=== PATIENT | female | born 1980 | race Caucasian/White ===

== ENCOUNTER 2016-03-22 10:43 | Emergency (ER) | payer OTHER ==
[~2016-03-22] VITALS: Ht 162.6 cm; Wt 113.4 kg
[~2016-03-22 10:43] MED LIST: AMOXICILLIN500 MG PO; BENADRYL50 MG PO; CLEOCIN150 MG PO; CRANBERRY450 MG PO; MOTRIN800 MG PO; PRENATAL1 TA1 PO; UNK ALLERGY MED
[2016-03-22 11:02] VITALS: BP 149/106
[2016-03-22] MEDS ORDERED: LOSARTAN POTASS25 MG PO (11:06)
--- NOTE | 2016-03-22 11:09 | NUR ---
PT AMBULATED TO BED 8 AT THIS TIME.
--- NOTE | 2016-03-22 11:15 | NUR ---
RIGHT FLANK PAIN X2 WEEKS; DENIES V/D; SKIN IS PINK/WARM/DRY; AAOX4 WITH EVEN AND STEADY GAIT; LUNGS CLEAR BL; HR EVEN AND REGULAR; PT DENIES ANY FEVER, CP, SOB, OR COUGH AT THIS TIME; PATIENT STATES PAIN OF 9/10 AT THIS TIME; VSS; PATIENT POSITIONED FOR COMFORT; HOB ELEVATED; BEDRAILS UP X2; BED DOWN. ER MD MADE AWARE OF PT STATUS.
[2016-03-22 12:30] VITALS: BP 144/98
== END 2016-03-22 12:30 | disposition home or self-care (01) ==
LOC: MED 10:43
DX: N39.0 Urinary tract infection, site not specified (principal); J45.909 Unspecified asthma, uncomplicated; C53.9 Malignant neoplasm of cervix uteri, unspecified; Z88.0 Allergy status to penicillin; Z88.5 Allergy status to narcotic agent

== ENCOUNTER 2016-05-04 14:43 | Emergency (ER) | payer OTHER ==
[~2016-05-04] VITALS: Ht 162.6 cm; Wt 117.9 kg
[~2016-05-04 14:43] MED LIST changes: +LOSARTAN POTASS25 MG PO
[2016-05-04 14:49] VITALS: BP 123/65
--- NOTE | 2016-05-04 15:03 | NUR ---
DR MORALEZ IN ROOM FOR EXAM.
--- NOTE | 2016-05-04 15:25 | NUR ---
URINE COLLECTED AND SENT
--- NOTE | 2016-05-04 15:48 | NUR ---
Patient discharged with v/s stable. Written and verbal after care instructions given and explained. Patient alert, oriented and verbalized understanding of instructions. Ambulatory with steady gait. All questions addressed prior to discharge. ID band removed. Patient advised to follow up with PMD. Rx of BACTRIM, PHENAZOPYRIDINR HCL given. Patient educated on indication of medication including possible reaction and side effects. Opportunity to ask questions provided and answered.
== END 2016-05-04 15:48 | disposition home or self-care (01) ==
LOC: MED 14:43
DX: N39.0 Urinary tract infection, site not specified (principal); J45.909 Unspecified asthma, uncomplicated; I10 Essential (primary) hypertension; F17.200 Nicotine dependence, unspecified, uncomplicated; Z85.41 Personal history of malignant neoplasm of cervix uteri; Z88.0 Allergy status to penicillin; Z88.5 Allergy status to narcotic agent

== ENCOUNTER 2016-08-28 13:22 | Emergency (ER) | payer OTHER ==
[~2016-08-28] VITALS: Ht 162.6 cm; Wt 117.2 kg
[~2016-08-28 13:22] MED LIST changes: -AMOXICILLIN500 MG PO; -BENADRYL50 MG PO; -CLEOCIN150 MG PO; -CRANBERRY450 MG PO; +LOSA25TA22 PO; -LOSARTAN POTASS25 MG PO; -MOTRIN800 MG PO; -PRENATAL1 TA1 PO; -UNK ALLERGY MED
[2016-08-28 13:41] VITALS: BP 118/53
[2016-08-28] MEDS ORDERED: NACL 0.9% 500 ML IV SCH (18:37)
--- NOTE | 2016-08-28 18:39 | NUR ---
Patient ambulated to bed 8. RN evaluating patient at bedside.
[2016-08-28] MEDS ORDERED: MORPHINE SULFATE 10 MG/ML SYR IVP ONE (18:40)
[2016-08-28] MEDS ORDERED: ONDANSETRON 4 MG/2 ML VIAL IVP ONE (18:40)
[2016-08-28 19:03] LABS: APPEARANCE,URINE TURBID (CLEAR); BILIRUBIN,URINE NEGATIVE (NEGATIVE); BLOOD, URINE 2+ (NEGATIVE); COLOR,URINE YELLOW (YELLOW); LEUKOCYTE ESTERASE ,URINE 2+ (NEGATIVE); NITRITE, URINE NEGATIVE (NEGATIVE); PH,URINE 6.5 (5.0-9.0); PROTEIN,URINE TRACE (NEGATIVE); UGLUCOSE NEGATIVE (NEGATIVE); UROBILINOGEN,URINE 0.2 EU/dL (0.2 - 1)
[2016-08-28 19:08] LABS: BACTERIA,URINE 1+ /HPF (None Seen); RBC,URINE 11-20 (MOD) /HPF (0-5); SQUAMOUS EPITHELIAL CELL,UR 4-10 (MOD) /LPF (0-3 (FEW)); URINE AMORPHOUS URATE 4+ /HPF (None Seen)
--- NOTE | 2016-08-28 19:26 | NUR ---
PATIENT PRESENTS TO ED WITH C/O BILATERAL FLANK PAIN RADIATING TO ABDOMEN X 3 DAYS;HESITANCY, URGENCY;HX OF KIDNEY PROBLEMS, FATTY LIVER, HTN, HPV;RX OF LOSARTAN .SKIN IS PINK/WARM/DRY; AAOX4 WITH EVEN AND STEADY GAIT; LUNGS CLEAR BL; HR EVEN AND REGULAR; PT DENIES ANY FEVER, CP, SOB, OR COUGH AT THIS TIME; PATIENT STATES PAIN OF 8/10 AT THIS TIME; PATIENT POSITIONED FOR COMFORT; HOB ELEVATED; BEDRAILS UP X2; BED DOWN.
[2016-08-28] MEDS ORDERED: LEVOFLOXACIN 500 MG/D5W PREMIX 100 ML IV ONE (19:30)
--- NOTE | 2016-08-28 19:30 | NUR ---
RECEIVED REPORT FROM DAY NURSE REINIER CALABRESE FOR TRANSFER OF CARE.
[2016-08-28] MEDS ORDERED: KETOROLAC 30 MG/ML VIAL IVP ONE (19:45)
[2016-08-28] MEDS ORDERED: PHENAZOPYRIDINE 100 MG TAB PO ONE (19:45)
[2016-08-28 19:47] LABS: BASOPHILS # (AUTO) 0.3 K/uL (0.00-0.22); BASOPHILS % (AUTO) 2.2 % (0.0-2.0); EOSINOPHILS # (AUTO) 0.2 K/uL (0-0.4); EOSINOPHILS % (AUTO) 1.2 % (0.0-4.0); HEMATOCRIT 40.2 % (36-48); HEMOGLOBIN 12.9 g/dL (12.0-16.0); LYMPHOCYTES # (AUTO) 2.3 K/uL (2.5-16.5); LYMPHOCYTES % (AUTO) 17.8 % (20.5-51.1); MEAN CORPUSCULAR HEMOGLOBIN 26 pg (27-31); MEAN CORPUSCULAR HGB CONC 32 g/dL (33-37); MEAN CORPUSCULAR VOLUME 81 fL (80-94); MONOCYTES # (AUTO) 0.6 K/uL (0.8-1.0); MONOCYTES % (AUTO) 4.4 % (1.7-9.3); NEUTROPHILS # (AUTO) 9.7 K/uL (1.8-7.7); NEUTROPHILS % (AUTO) 74.4 % (42.2-75.2); PLATELET COUNT (AUTO) 359 K/uL (140-450); RED BLOOD CELL COUNT(AUTO) 4.95 MIL/uL (4.20-5.40); RED CELL DISTRIBUTION WIDTH 14.3 % (11.6-13.7); WHITE BLOOD COUNT (AUTO) 13.1 K/uL (4.8-10.8)
[2016-08-28 19:51] LABS: ANION GAP 14.8 (8-16); CALCIUM 8.3 mg/dL (8.5-10.1); CARBON DIOXIDE 24.2 mmol/L (21-32); CREATININE 0.7 mg/dL (0.6-1.3)
--- NOTE | 2016-08-28 19:55 | NUR ---
PATIENT BEING EVALUATED BY DR. DIAZ.
[2016-08-28 19:56] LABS: ALBUMIN 3.5 g/dL (3.4-5.0); TOTAL BILIRUBIN 0.9 mg/dL (0.0-1.0); TOTAL PROTEIN, SERUM 7.9 g/dL (6.4-8.2)
--- NOTE | 2016-08-28 21:25 | NUR ---
PT RESTING IN BED. NO SOB NOTED AT THIS TIME. PT DENIES ANY DISCOMFORT AT THIS TIME. WILL CONTINUE TO MONITOR.
[2016-08-28 22:02] VITALS: BP 123/62
--- NOTE | 2016-08-28 22:03 | NUR ---
Patient discharged with v/s stable. Written and verbal after care instructions given and explained. Patient alert, oriented and verbalized understanding of instructions. Ambulatory with steady gait. All questions addressed prior to discharge. ID band removed. Patient advised to follow up with PMD. Rx of NORCO, CIPRO, PYRIDIUM given. Patient educated on indication of medication including possible reaction and side effects. Opportunity to ask questions provided and answered.
== END 2016-08-28 22:03 | disposition home or self-care (01) ==
LOC: MED 13:22
DX: N39.0 Urinary tract infection, site not specified (principal); J45.909 Unspecified asthma, uncomplicated; I10 Essential (primary) hypertension; Z88.0 Allergy status to penicillin; Z88.5 Allergy status to narcotic agent; Z85.41 Personal history of malignant neoplasm of cervix uteri
CPT/HCPCS: 36415; 74176; 80053; 81001; 81025; 85025; 87086; 96365; 96375; 99285; J1885; J1956; J2405; J7030; J2270

== ENCOUNTER 2017-01-22 13:01 | Emergency (ER) | payer OTHER ==
[~2017-01-22] VITALS: Ht 160 cm; Wt 115.7 kg
[2017-01-22 13:10] VITALS: BP 141/62
--- NOTE | 2017-01-22 13:25 | NUR ---
Patient ambulated to bed 06.
--- NOTE | 2017-01-22 13:53 | NUR ---
Patient being evaluated by Dr. Armendariz at bedside.
--- NOTE | 2017-01-22 13:53 | NUR ---
37/F presents to ED for evaluation RUQ for the past 2 months and remains constant the past 2 weeks. Pt states "It gets worse when I eat. They have me on a special diet." Hx fatty liver, HPV. No vomiting noted at this time. Abd soft, tender with palpation, active bowel sounds x 4 quadrants. Pt seen by PMD and no further testing has been done. VSS.
[2017-01-22] MEDS ORDERED: KETOROLAC 30 MG/ML VIAL IM ONE (14:05)
--- NOTE | 2017-01-22 14:05 | NUR ---
Ultrasound at bedside.
[2017-01-22] MEDS ORDERED: KETOROLAC 30 MG/ML VIAL IVP ONE (14:25)
[2017-01-22] MEDS ORDERED: NACL 0.9% 1,000 ML IV ONE (14:25)
[2017-01-22 14:28] LABS: BILIRUBIN,URINE NEGATIVE (NEGATIVE); BLOOD, URINE 2+ (NEGATIVE); LEUKOCYTE ESTERASE ,URINE 1+ (NEGATIVE); NITRITE, URINE NEGATIVE (NEGATIVE); UGLUCOSE NEGATIVE (NEGATIVE)
[2017-01-22 14:29] LABS: APPEARANCE,URINE HAZY (CLEAR); COLOR,URINE YELLOW (YELLOW)
[2017-01-22 14:35] LABS: BASOPHILS # (AUTO) 0.1 K/uL (0.00-0.22); BASOPHILS % (AUTO) 1.4 % (0.0-2.0); EOSINOPHILS # (AUTO) 0.1 K/uL (0-0.4); EOSINOPHILS % (AUTO) 0.6 % (0.0-4.0); HEMATOCRIT 41.5 % (36-48); HEMOGLOBIN 13.4 g/dL (12.0-16.0); LYMPHOCYTES # (AUTO) 1.9 K/uL (2.5-16.5); LYMPHOCYTES % (AUTO) 19.8 % (20.5-51.1); MEAN CORPUSCULAR HEMOGLOBIN 26 pg (27-31); MEAN CORPUSCULAR HGB CONC 32 g/dL (33-37); MEAN CORPUSCULAR VOLUME 81 fL (80-94); MONOCYTES # (AUTO) 0.3 K/uL (0.8-1.0); MONOCYTES % (AUTO) 3.3 % (1.7-9.3); NEUTROPHILS # (AUTO) 7.2 K/uL (1.8-7.7); NEUTROPHILS % (AUTO) 74.9 % (42.2-75.2); PLATELET COUNT (AUTO) 343 K/uL (140-450); RED BLOOD CELL COUNT(AUTO) 5.12 MIL/uL (4.20-5.40); RED CELL DISTRIBUTION WIDTH 14.8 % (11.6-13.7); WHITE BLOOD COUNT (AUTO) 9.6 K/uL (4.8-10.8)
[2017-01-22 14:46] LABS: RBC,URINE 3-10 (FEW) /HPF (0-5)
[2017-01-22 14:49] LABS: CARBON DIOXIDE 25.2 mmol/L (21-32); CREATININE 0.7 mg/dL (0.6-1.3); POTASSIUM 4.2 mmol/L (3.5-5.1)
--- NOTE | 2017-01-22 14:51 | NUR ---
Pt taken CT via w/c
[2017-01-22 14:55] LABS: ALBUMIN 3.4 g/dL (3.4-5.0); TOTAL BILIRUBIN 0.5 mg/dL (0.0-1.0)
--- NOTE | 2017-01-22 16:19 | NUR ---
IV removed, catheter intact and site benign. Applied folded 4x4 gauze and tape to stop bleeding.
[2017-01-22 16:20] VITALS: BP 120/74
--- NOTE | 2017-01-22 16:20 | NUR ---
Patient discharged with v/s stable. Written and verbal after care instructions given and explained. Patient alert, oriented and verbalized understanding of instructions. Ambulatory with steady gait. All questions addressed prior to discharge. ID band removed. Patient advised to follow up with PMD. Rx of Bentyl 20mg given. Patient educated on indication of medication including possible reaction and side effects. Opportunity to ask questions provided and answered.
== END 2017-01-22 16:20 | disposition home or self-care (01) ==
LOC: MED 13:01
DX: R10.11 Right upper quadrant pain (principal); R11.0 Nausea; R19.7 Diarrhea, unspecified; J45.909 Unspecified asthma, uncomplicated; I10 Essential (primary) hypertension; Z71.6 Tobacco abuse counseling; Z88.0 Allergy status to penicillin; Z88.5 Allergy status to narcotic agent; Z79.899 Other long term (current) drug therapy; Z85.41 Personal history of malignant neoplasm of cervix uteri
CPT/HCPCS: 36415; 74176; 76705; 80053; 81001; 81025; 85025; 87086; 96361; 96374; 99285; J1885; J7030; Q0092

== ENCOUNTER 2017-03-19 17:10 | Emergency (ER) | payer OTHER ==
[~2017-03-19] VITALS: Ht 160 cm; Wt 117.0 kg
[2017-03-19 17:25] VITALS: BP 141/80
--- NOTE | 2017-03-19 18:00 | NUR ---
Patient ambulated to bed 2. RN evaluating patient at bedside.
--- NOTE | 2017-03-19 18:15 | NUR ---
ASSUMED PATIENT CARE, CONCUR WITH TRIAGE. NURSING ASSESSMENT COMPLETED. SEEN AND EVALUATED BY PROVIDER, MSE COMPLETED.
[2017-03-19 18:39] LABS: APPEARANCE,URINE SL CLOUDY (CLEAR); BILIRUBIN,URINE NEGATIVE (NEGATIVE); BLOOD, URINE 2+ (NEGATIVE); COLOR,URINE YELLOW (YELLOW); LEUKOCYTE ESTERASE ,URINE NEGATIVE (NEGATIVE); NITRITE, URINE NEGATIVE (NEGATIVE); PH,URINE 6.5 (5.0-9.0); UGLUCOSE NEGATIVE (NEGATIVE)
[2017-03-19 18:51] LABS: BASOPHILS # (AUTO) 0.3 K/uL (0.00-0.22); BASOPHILS % (AUTO) 2.1 % (0.0-2.0); EOSINOPHILS # (AUTO) 0.2 K/uL (0-0.4); EOSINOPHILS % (AUTO) 1.2 % (0.0-4.0); HEMATOCRIT 42.2 % (36-48); HEMOGLOBIN 13.6 g/dL (12.0-16.0); LYMPHOCYTES # (AUTO) 2.1 K/uL (2.5-16.5); LYMPHOCYTES % (AUTO) 15.7 % (20.5-51.1); MEAN CORPUSCULAR HEMOGLOBIN 26 pg (27-31); MEAN CORPUSCULAR HGB CONC 32 g/dL (33-37); MEAN CORPUSCULAR VOLUME 81 fL (80-94); MONOCYTES # (AUTO) 0.5 K/uL (0.8-1.0); MONOCYTES % (AUTO) 3.5 % (1.7-9.3); NEUTROPHILS % (AUTO) 77.5 % (42.2-75.2); PLATELET COUNT (AUTO) 381 K/uL (140-450); RED BLOOD CELL COUNT(AUTO) 5.18 MIL/uL (4.20-5.40); RED CELL DISTRIBUTION WIDTH 14.6 % (11.6-13.7); WHITE BLOOD COUNT (AUTO) 13.1 K/uL (4.8-10.8)
[2017-03-19 18:59] LABS: RBC,URINE 11-20 (MOD) /HPF (0-5); WBC,URINE 0-5 (RARE) /HPF (0-5)
[2017-03-19 19:00] LABS: ALBUMIN 3.6 g/dL (3.4-5.0); ANION GAP 15.2 (8-16); CARBON DIOXIDE 23.8 mmol/L (21-32); CREATININE 0.7 mg/dL (0.6-1.3); TOTAL BILIRUBIN 0.5 mg/dL (0.0-1.0)
--- NOTE | 2017-03-19 19:12 | NUR ---
Report recieved from Rj HILLS. Pt stable in bed and resting.
--- NOTE | 2017-03-19 19:21 | NUR ---
PATIENT CARE REPORT GIVEN TO FISHER TROT LINE, CONTINUITY OF CARE ENDORSED.
[2017-03-19] MEDS ORDERED: KETOROLAC 30 MG/ML VIAL IM ONE (19:55)
--- NOTE | 2017-03-19 20:00 | NUR ---
PT IN BED RESTING IN POC. VSS. CONTINUE TO MONITOR.
[2017-03-19 20:46] VITALS: BP 135/85
--- NOTE | 2017-03-19 20:46 | NUR ---
Patient discharged with v/s stable with pain decreased to 4/10. Written and verbal after care instructions given and explained. Patient alert, oriented and verbalized understanding of instructions. Ambulatory with steady gait. All questions addressed prior to discharge. ID band removed. Patient advised to follow up with PMD. Rx of CIPRO AND MOTRIN given. Patient educated on indication of medication including possible reaction and side effects. Opportunity to ask questions provided and answered.
== END 2017-03-19 20:46 | disposition home or self-care (01) ==
LOC: MED 17:10
DX: R10.11 Right upper quadrant pain (principal); R30.0 Dysuria; I10 Essential (primary) hypertension; Z88.0 Allergy status to penicillin; Z88.5 Allergy status to narcotic agent
CPT/HCPCS: 36415; 74176; 76705; 80053; 81001; 81025; 83690; 85025; 96372; 99285; J1885; Q0092

== ENCOUNTER 2017-05-30 16:01 | Emergency (ER) | payer OTHER ==
[~2017-05-30] VITALS: Ht 162.6 cm; Wt 116.6 kg
[2017-05-30 16:26] VITALS: BP 151/103
--- NOTE | 2017-05-30 16:44 | NUR ---
EKG GIVEN TO DR GARCIA, PT AMBULATES BACK TO THE LOBBY
--- NOTE | 2017-05-30 20:10 | NUR ---
PT SITTING IN A CHAIR. PT STATED THAT CHEST PAIN, BURNING AND STABBING FEELING (6/10) STARTED ABOUT 3 WEEKS AGO AND LEFT ARM NUMBNESS. PT STATED PAIN COMES AND GOES. PT FURTHER STATED THAT SHE HAD DENTAL WORK ABOUT A WEEK AGO AND THEY WORKED ON TEETH ON THE LEFT SIDE AND SHE HAD LEFT JAR PAIN FROM THEN AND PAIN TO THE CHEST AND THE ARM WORSENED. PT TAKES LOSARTAN 25MG FOR HIGH BP, CLINDAMICYN AND IBUPROFEN S/P DENTAL WORK. PT IS VSS. RR EVEN AND UNLABORED. ER MD MADE AWARE.
--- NOTE | 2017-05-30 20:15 | NUR ---
PT.AMBULATED TO ER HANNA
--- NOTE | 2017-05-30 20:25 | NUR ---
DR. NEELY EVALUATING PT AT THIS TIME.
[2017-05-30] MEDS ORDERED: KETOROLAC 30 MG/ML VIAL IM ONE (20:30)
[2017-05-30 20:58] LABS: BASOPHILS # (AUTO) 0.1 K/uL (0.00-0.22); BASOPHILS % (AUTO) 1.2 % (0.0-2.0); EOSINOPHILS # (AUTO) 0.1 K/uL (0-0.4); EOSINOPHILS % (AUTO) 0.8 % (0.0-4.0); HEMOGLOBIN 12.8 g/dL (12.0-16.0); LYMPHOCYTES % (AUTO) 25.9 % (20.5-51.1); MEAN CORPUSCULAR HEMOGLOBIN 26 pg (27-31); MEAN CORPUSCULAR HGB CONC 32 g/dL (33-37); MEAN CORPUSCULAR VOLUME 81.3 fL (80-94); MONOCYTES # (AUTO) 0.5 K/uL (0.8-1.0); MONOCYTES % (AUTO) 4.6 % (1.7-9.3); NEUTROPHILS # (AUTO) 7.8 K/uL (1.8-7.7); NEUTROPHILS % (AUTO) 67.5 % (42.2-75.2); PLATELET COUNT (AUTO) 388 K/uL (140-450); RED BLOOD CELL COUNT(AUTO) 4.92 MIL/uL (4.20-5.40); RED CELL DISTRIBUTION WIDTH 16.3 % (11.6-13.7); WHITE BLOOD COUNT (AUTO) 11.5 K/uL (4.8-10.8)
[2017-05-30 21:08] LABS: APPEARANCE,URINE SL CLOUDY (CLEAR); BILIRUBIN,URINE NEGATIVE (NEGATIVE); BLOOD, URINE 3+ (NEGATIVE); COLOR,URINE YELLOW (YELLOW); LEUKOCYTE ESTERASE ,URINE NEGATIVE (NEGATIVE); NITRITE, URINE NEGATIVE (NEGATIVE); UGLUCOSE NEGATIVE (NEGATIVE)
[2017-05-30 21:09] LABS: ANION GAP 16.2 (8-16); CARBON DIOXIDE 25.7 mmol/L (21-32); CREATININE 0.7 mg/dL (0.6-1.3); POTASSIUM 3.9 mmol/L (3.5-5.1)
[2017-05-30 21:11] LABS: BARBITURATE, URINE NEG. ng/ml (NEG <=200); BENZODIAZEPINE, URINE NEG. ng/mL (NEG <=200); CANNABINOID, URINE NEG. ng/mL (NEG <=50); COCAINE, URINE NEG. ng/mL (NEG <=300); OPIATE, URINE NEG. ng/mL (NEG <=2000); PHENCYCLIDINE SCREEN,URINE NEG. ng/mL (NEG <=25)
[2017-05-30 21:16] LABS: ALBUMIN 3.5 g/dL (3.4-5.0); TOTAL BILIRUBIN 0.5 mg/dL (0.0-1.0)
[2017-05-30 21:22] LABS: RBC,URINE >100 /HPF (0-5)
[2017-05-30 21:55] VITALS: BP 138/88
== END 2017-05-30 21:55 | disposition home or self-care (01) ==
LOC: MED 16:01
DX: R07.89 Other chest pain (principal); R06.02 Shortness of breath; R68.84 Jaw pain; I10 Essential (primary) hypertension; Z79.899 Other long term (current) drug therapy; Z88.0 Allergy status to penicillin; Z88.5 Allergy status to narcotic agent
CPT/HCPCS: 36415; 71045; 80053; 80305; 81001; 84484; 85025; 87086; 93005; 96372; 99285; J1885

== ENCOUNTER 2018-01-04 22:08 | Emergency (ER) | payer OTHER ==
[~2018-01-04] VITALS: Ht 160 cm; Wt 117.2 kg
[~2018-01-04 22:08] MED LIST changes: +LOSA25TA15 PO; -LOSA25TA22 PO
[2018-01-04 22:15] VITALS: BP 149/66
[2018-01-04] MEDS ORDERED: BEN10 PO (22:18)
[2018-01-04] MEDS ORDERED: KETOROLAC 60 MG/2 ML VIAL IM ONE (22:50)
[2018-01-04] MEDS ORDERED: ONDANSETRON 4 MG ODT PO ONE (22:50)
[2018-01-04 23:17] VITALS: BP 133/76
== END 2018-01-04 23:17 | disposition home or self-care (01) ==
LOC: MED 22:08
DX: N39.0 Urinary tract infection, site not specified (principal); R11.0 Nausea; F17.200 Nicotine dependence, unspecified, uncomplicated; I10 Essential (primary) hypertension; Z88.0 Allergy status to penicillin; Z88.5 Allergy status to narcotic agent; Z79.899 Other long term (current) drug therapy
CPT/HCPCS: 81002; 81025; 87086; 96372; 99283; J1885; Q0162

== ENCOUNTER 2018-02-13 21:55 | Emergency (ER) | payer OTHER ==
[~2018-02-13] VITALS: Ht 162.6 cm; Wt 113.4 kg
[~2018-02-13 21:55] MED LIST changes: +BEN10 PO; -LOSA25TA15 PO; +LOSA25TA43 PO
[2018-02-13 22:01] VITALS: BP 126/87
--- NOTE | 2018-02-13 22:01 | NUR ---
TO BED # 5 AMBULATORY, REPORT GIVEN TO JOSE LUIS HILLS
--- NOTE | 2018-02-13 22:10 | NUR ---
Dr. Baltazar evaluating patient at bedside.
[2018-02-13] MEDS ORDERED: KETOROLAC 60 MG/2 ML VIAL IM ONE (22:15)
[2018-02-13] MEDS ORDERED: ONDANSETRON 4 MG ODT PO ONE (22:15)
[2018-02-13 22:33] LABS: BASOPHILS # (AUTO) 0.1 K/uL (0.00-0.22); BASOPHILS % (AUTO) 0.7 % (0.0-2.0); EOSINOPHILS # (AUTO) 0.1 K/uL (0-0.4); EOSINOPHILS % (AUTO) 1.2 % (0.0-4.0); HEMATOCRIT 39.9 % (36-48); HEMOGLOBIN 12.7 g/dL (12.0-16.0); LYMPHOCYTES # (AUTO) 2.3 K/uL (2.5-16.5); LYMPHOCYTES % (AUTO) 21.1 % (20.5-51.1); MEAN CORPUSCULAR HEMOGLOBIN 26 pg (27-31); MEAN CORPUSCULAR HGB CONC 32 g/dL (33-37); MEAN CORPUSCULAR VOLUME 81.5 fL (80-94); MONOCYTES # (AUTO) 0.6 K/uL (0.8-1.0); MONOCYTES % (AUTO) 5.7 % (1.7-9.3); NEUTROPHILS # (AUTO) 7.7 K/uL (1.8-7.7); NEUTROPHILS % (AUTO) 71.3 % (42.2-75.2); PLATELET COUNT (AUTO) 362 K/uL (140-450); RED BLOOD CELL COUNT(AUTO) 4.89 MIL/uL (4.20-5.40); RED CELL DISTRIBUTION WIDTH 15.9 % (11.6-13.7); WHITE BLOOD COUNT (AUTO) 10.8 K/uL (4.8-10.8)
[2018-02-13 22:42] LABS: ANION GAP 12.7 (8-16); CREATININE 0.7 mg/dL (0.6-1.3); POTASSIUM 3.7 mmol/L (3.5-5.1)
[2018-02-13 22:50] LABS: ALBUMIN 3.3 g/dL (3.4-5.0); TOTAL BILIRUBIN 0.4 mg/dL (0.0-1.0)
--- NOTE | 2018-02-13 22:50 | NUR ---
PT BIB SELF C/O ABD PAIN W/ NAUSEA AND URINARY BURNING AND FREQUENCY. PT STATES SHE HAS BEEN SEEN BY PCP FOR SAME S/S AND GIVEN ABX BUT PT IS STILL HAVING PAIN. ABD IS ROUND, SOFT, ACTIVE BS X4, NON TENDER. PT LAYING IN BED FAMILY AT BEDSIDE.
[2018-02-13 22:53] LABS: APPEARANCE,URINE CLEAR (CLEAR); BILIRUBIN,URINE NEGATIVE (NEGATIVE); BLOOD, URINE 2+ (NEGATIVE); COLOR,URINE YELLOW (YELLOW); LEUKOCYTE ESTERASE ,URINE NEGATIVE (NEGATIVE); NITRITE, URINE NEGATIVE (NEGATIVE); PH,URINE 6.5 (5.0-9.0); RBC,URINE 0-5 (RARE) /HPF (0-5); UGLUCOSE NEGATIVE (NEGATIVE); WBC,URINE 0-5 (RARE) /HPF (0-5)
[2018-02-13 23:24] VITALS: BP 134/83
--- NOTE | 2018-02-13 23:25 | NUR ---
Patient discharged with v/s stable. Written and verbal after care instructions given and explained. Patient alert, oriented and verbalized understanding of instructions. Ambulatory with steady gait. All questions addressed prior to discharge. ID band removed. Patient advised to follow up with PMD. Rx of NITROFURANTOIN given. Patient educated on indication of medication including possible reaction and side effects. Opportunity to ask questions provided and answered.
== END 2018-02-13 23:25 | disposition home or self-care (01) ==
LOC: MED 21:55
DX: N39.0 Urinary tract infection, site not specified (principal); I10 Essential (primary) hypertension; Z88.0 Allergy status to penicillin; Z88.5 Allergy status to narcotic agent; Z79.899 Other long term (current) drug therapy
CPT/HCPCS: 36415; 80053; 81001; 81025; 83690; 84703; 85025; 96372; 99283; J1885; Q0162

== ENCOUNTER 2018-04-24 21:50 | Emergency (ER) | payer OTHER ==
[~2018-04-24] VITALS: Ht 162.6 cm; Wt 118.9 kg
[2018-04-24 21:55] VITALS: BP 152/64
--- NOTE | 2018-04-24 22:02 | NUR ---
EKG PERFORMED IN TRIAGE ROOM WITH TRIAGE NURSE PRESENT
--- NOTE | 2018-04-24 22:26 | NUR ---
PT TAKEN TO XRAY FROM [facility] BEARD[facility]
--- NOTE | 2018-04-24 23:22 | NUR ---
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 PT DENIES N/V/D; SKIN IS PINK/WARM/DRY; AAOX4 WITH EVEN AND STEADY GAIT; LUNGS CLEAR BL; HR EVEN AND REGULAR; PATIENT POSITIONED FOR COMFORT; HOB ELEVATED; BEDRAILS UP X2; BED DOWN. ER MD MADE AWARE OF PT STATUS.
--- NOTE | 2018-04-24 23:22 | NUR ---
PT TAKEN TO BED 12
--- NOTE | 2018-04-25 00:52 | NUR ---
Dr. Dominguez evaluating patient at bedside.
[2018-04-25] MEDS ORDERED: KETOROLAC 60 MG/2 ML VIAL IM ONE (00:55)
[2018-04-25 01:29] VITALS: BP 144/71
== END 2018-04-25 01:29 | disposition home or self-care (01) ==
LOC: MED 21:50
DX: R07.89 Other chest pain (principal); R11.0 Nausea; R05 Cough; I10 Essential (primary) hypertension; F17.200 Nicotine dependence, unspecified, uncomplicated; Z79.899 Other long term (current) drug therapy; Z88.0 Allergy status to penicillin; Z88.5 Allergy status to narcotic agent
CPT/HCPCS: 71046; 93005; 96372; 99283; J1885

== ENCOUNTER 2018-10-08 17:30 | Emergency (ER) | payer OTHER ==
[~2018-10-08] VITALS: Ht 160 cm; Wt 122.5 kg
[2018-10-08 17:50] VITALS: BP 123/72
[2018-10-08 19:50] VITALS: BP 123/72
[2018-10-08 19:52] LABS: BASOPHILS # (AUTO) 0.1 K/uL (0.00-0.22); BASOPHILS % (AUTO) 0.8 % (0.0-2.0); EOSINOPHILS # (AUTO) 0.1 K/uL (0-0.4); EOSINOPHILS % (AUTO) 0.7 % (0.0-4.0); HEMATOCRIT 41.4 % (36-48); HEMOGLOBIN 13.5 g/dL (12.0-16.0); LYMPHOCYTES # (AUTO) 2.1 K/uL (2.5-16.5); LYMPHOCYTES % (AUTO) 18.5 % (20.5-51.1); MEAN CORPUSCULAR HEMOGLOBIN 26 pg (27-31); MEAN CORPUSCULAR HGB CONC 33 g/dL (33-37); MEAN CORPUSCULAR VOLUME 80.6 fL (80-94); MONOCYTES # (AUTO) 0.5 K/uL (0.8-1.0); MONOCYTES % (AUTO) 4.8 % (1.7-9.3); NEUTROPHILS # (AUTO) 8.4 K/uL (1.8-7.7); NEUTROPHILS % (AUTO) 75.2 % (42.2-75.2); PLATELET COUNT (AUTO) 327 K/uL (140-450); RED BLOOD CELL COUNT(AUTO) 5.13 MIL/uL (4.20-5.40); RED CELL DISTRIBUTION WIDTH 15.7 % (11.6-13.7); WHITE BLOOD COUNT (AUTO) 11.2 K/uL (4.8-10.8)
[2018-10-08 20:04] LABS: ANION GAP 15.4 (8-16); CARBON DIOXIDE 22.4 mmol/L (21-32); CREATININE 0.6 mg/dL (0.6-1.3); POTASSIUM 3.8 mmol/L (3.5-5.1)
[2018-10-08 20:10] LABS: ALBUMIN 3.5 g/dL (3.4-5.0); TOTAL BILIRUBIN 0.7 mg/dL (0.0-1.0)
[2018-10-08 20:10] LABS: BILIRUBIN,URINE NEGATIVE (NEGATIVE); BLOOD, URINE 3+ (NEGATIVE); COLOR,URINE YELLOW (YELLOW); LEUKOCYTE ESTERASE ,URINE TRACE (NEGATIVE); NITRITE, URINE NEGATIVE (NEGATIVE); UGLUCOSE NEGATIVE (NEGATIVE)
[2018-10-08 20:24] LABS: APPEARANCE,URINE HAZY (CLEAR)
[2018-10-08] MEDS ORDERED: KETOROLAC 60 MG/2 ML VIAL IM ONE (20:35)
== END 2018-10-08 21:07 | disposition home or self-care (01) ==
LOC: MED 17:30
DX: N39.0 Urinary tract infection, site not specified (principal); I10 Essential (primary) hypertension; F17.210 Nicotine dependence, cigarettes, uncomplicated; Z88.5 Allergy status to narcotic agent; Z79.899 Other long term (current) drug therapy; Z88.0 Allergy status to penicillin
CPT/HCPCS: 36415; 80053; 81001; 81025; 83690; 85025; 87086; 96372; 99283; J1885

== ENCOUNTER 2019-01-23 16:12 | Emergency (ER) | payer OTHER ==
[~2019-01-23] VITALS: Ht 160 cm; Wt 98.0 kg
[2019-01-23 16:54] VITALS: BP 130/79
--- NOTE | 2019-01-23 16:59 | NUR ---
PT AMBULATED TO RESTROOM TO PROVIDE URINE SAMPLE.
--- NOTE | 2019-01-23 17:02 | NUR ---
39 Y/O FEMALE C/O PAINFUL URINATION, URINARY HESITENCY/FEQUENCY, FLANK PAIN, NAUSEA AND CHILLS X2 WEEKS. PT STATES SHE TRIED TAKING AN ANTIBIOTIC SHE HAD FROM PREVIOUS UTI AND THERE WAS NO RELIEF. ABD SOFT AND NON TENDER. PT CALM AND PLEASANT, PT SITTING IN CHB. MEDHX: CHRONIC UTI ALLERGIES: PENICILLIN, CODEINE
[2019-01-23 18:34] LABS: APPEARANCE,URINE CLEAR (CLEAR); BILIRUBIN,URINE NEGATIVE (NEGATIVE); BLOOD, URINE 1+ (NEGATIVE); COLOR,URINE YELLOW (YELLOW); LEUKOCYTE ESTERASE ,URINE NEGATIVE (NEGATIVE); NITRITE, URINE NEGATIVE (NEGATIVE); PH,URINE 5.5 (5.0-9.0); UGLUCOSE NEGATIVE (NEGATIVE)
[2019-01-23 18:49] LABS: RBC,URINE 0-5 /HPF (0-5); WBC,URINE 0-5 /HPF (0-5)
[2019-01-23] MEDS ORDERED: KETOROLAC 60 MG/2 ML VIAL IM ONE (19:25)
--- NOTE | 2019-01-23 19:33 | NUR ---
PT CONTINUES TO C/O LOWER BACK PAIN 09/30. ADMINISTERED TORADOL 60MG PER ERPA ORDER. WILL REASSESS LATER.
--- NOTE | 2019-01-23 20:00 | NUR ---
PT STATES SOME PAIN RELIEF, 07/31. WILL CONTINUE TO MONITOR.
[2019-01-23] MEDS ORDERED: cefTRIAXone 250 MG in LIDOCAINE MPF 1% 0.9 ML IM ONE (20:45)
[2019-01-23] MEDS ORDERED: AZITHROMYCIN 250 MG TAB PO ONE (20:45)
[2019-01-23 21:18] VITALS: BP 135/65
--- NOTE | 2019-01-23 21:18 | NUR ---
PT DISCHARGED WITH PAPERWORK. RX MOTRIN, NITROFURATOIN, PHENAZOPYRIDINE. EDUCATED PT REGARDING MEDICATIONS AND S/E. EDUCATED PT REGARDING D/C DIAGNOSIS AND INSTRUCTIONS. PT VERBALIZED UNDERSTANDING OF TEACHING. TOLD PT TO FOLLOW UP WITH PCP AND WHEN TO RETURN TO ED. PT AT STABLE CONDITION. ALL QUESTIONS ANSWERED.
[2019-01-26 15:13] LABS: CHLAMYDIA TRACHOMATIS AMP DNA Negative (Negative)
== END 2019-01-23 21:18 | disposition home or self-care (01) ==
LOC: MED 16:12
DX: N89.8 Other specified noninflammatory disorders of vagina (principal); R30.0 Dysuria; I10 Essential (primary) hypertension; Z11.3 Encounter for screening for infections with a predominantly sexual mode of transmission; Z88.0 Allergy status to penicillin; Z88.5 Allergy status to narcotic agent; Z79.899 Other long term (current) drug therapy
CPT/HCPCS: 36415; 81001; 81025; 87086; 87210; 87491; 96372; 99283; J0696; J1885; J2001

== ENCOUNTER 2019-04-24 16:00 | Emergency (ER) | payer OTHER ==
[~2019-04-24] VITALS: Ht 165.1 cm; Wt 118.4 kg
[2019-04-24 16:09] VITALS: BP 121/80
--- NOTE | 2019-04-24 16:17 | NUR ---
URINE CUP HANDED TO PT FOR SAMPLE
--- NOTE | 2019-04-24 16:30 | NUR ---
39 Y/O F C/C UPPER QUADRANT ABD PAIN / LOWER AND UPPER BACK PAIN / NAUSEA X 3 DAYS. PER PT DENIES TRAUMA. ABDOMINAL PAIN 08/30. BACK PAIN 09/30. PT UNABLE TO DESCRIBE PAIN. PT ALLERGIES PNC,CODEINE. HX IBS,DIVERTICULITIS,HTN,ACID REFLUX,EMPHYSEMA. RX LOSARTAN,PANTOPRAZOLE. DENIES V/D. SIDE RAIL X1. FAMILY AT BEDSIDE.
--- NOTE | 2019-04-24 16:59 | NUR ---
PT RESTING IN BED, SIDE RAIL X1
--- NOTE | 2019-04-24 16:59 | NUR ---
ERMD AT BEDSIDE
[2019-04-24] MEDS ORDERED: NACL 0.9% 1,000 ML IV SCH (17:05)
[2019-04-24] MEDS ORDERED: KETOROLAC 30 MG/ML VIAL IVP ONE (17:05)
[2019-04-24] MEDS ORDERED: ONDANSETRON 4 MG/2 ML VIAL IVP ONE (17:05)
--- NOTE | 2019-04-24 17:56 | NUR ---
LAB COLLECTED ; WALKED TO LAB
--- NOTE | 2019-04-24 17:56 | NUR ---
US AT BEDSIDE
[2019-04-24 18:22] LABS: BASOPHILS # (AUTO) 0.1 K/uL (0.00-0.22); BASOPHILS % (AUTO) 0.6 % (0.0-2.0); EOSINOPHILS % (AUTO) 0.5 % (0.0-4.0); HEMATOCRIT 38.4 % (36-48); HEMOGLOBIN 12.9 g/dL (12.0-16.0); LYMPHOCYTES # (AUTO) 1.7 K/uL (2.5-16.5); LYMPHOCYTES % (AUTO) 17.6 % (20.5-51.1); MEAN CORPUSCULAR HEMOGLOBIN 28 pg (27-31); MEAN CORPUSCULAR HGB CONC 34 g/dL (33-37); MEAN CORPUSCULAR VOLUME 81.9 fL (80-94); MONOCYTES # (AUTO) 0.5 K/uL (0.8-1.0); MONOCYTES % (AUTO) 4.7 % (1.7-9.3); NEUTROPHILS # (AUTO) 7.6 K/uL (1.8-7.7); NEUTROPHILS % (AUTO) 76.6 % (42.2-75.2); PLATELET COUNT (AUTO) 337 K/uL (140-450); RED BLOOD CELL COUNT(AUTO) 4.69 MIL/uL (4.20-5.40); RED CELL DISTRIBUTION WIDTH 14.5 % (11.6-13.7); WHITE BLOOD COUNT (AUTO) 9.9 K/uL (4.8-10.8)
[2019-04-24 18:37] LABS: ALBUMIN 3.6 g/dL (3.4-5.0); ANION GAP 11.1 (8-16); CARBON DIOXIDE 24.8 mmol/L (21-32); CREATININE 0.7 mg/dL (0.6-1.3); POTASSIUM 3.9 mmol/L (3.5-5.1); TOTAL BILIRUBIN 0.6 mg/dL (0.0-1.0)
--- NOTE | 2019-04-24 18:51 | NUR ---
PT RESTING IN BED, SIDE RAIL X1
--- NOTE | 2019-04-24 19:06 | NUR ---
Pt report received from REINIER Wren. Transfer of care at this time.
--- NOTE | 2019-04-24 19:06 | NUR ---
REPORT GIVEN TO TRACI HILLS / TORRI HILLS FOR CONTINUITY OF CARE
[2019-04-24 19:41] VITALS: BP 119/74
--- NOTE | 2019-04-24 19:41 | NUR ---
Patient discharged with v/s stable. Written and verbal after care instructions given and explained. Patient verbalized understanding. Ambulatory with steady gait. All questions addressed prior to discharge. Advised to follow up with PMD.
[2019-04-24 20:49] LABS: APPEARANCE,URINE CLEAR (CLEAR); BILIRUBIN,URINE NEGATIVE (NEGATIVE); BLOOD, URINE 1+ (NEGATIVE); COLOR,URINE YELLOW (YELLOW); LEUKOCYTE ESTERASE ,URINE NEGATIVE (NEGATIVE); NITRITE, URINE NEGATIVE (NEGATIVE); PH,URINE 5.5 (5.0-9.0); UGLUCOSE NEGATIVE (NEGATIVE)
[2019-04-24 21:14] LABS: WBC,URINE 0-5 /HPF (0-5)
== END 2019-04-24 19:41 | disposition home or self-care (01) ==
LOC: MED 16:00
DX: R10.11 Right upper quadrant pain (principal); G89.29 Other chronic pain; R11.0 Nausea; R63.0 Anorexia; K21.9 Gastro-esophageal reflux disease without esophagitis; I10 Essential (primary) hypertension; Z98.890 Other specified postprocedural states; J43.9 Emphysema, unspecified; F17.210 Nicotine dependence, cigarettes, uncomplicated; Z79.899 Other long term (current) drug therapy; Z88.0 Allergy status to penicillin; Z88.5 Allergy status to narcotic agent; Z71.6 Tobacco abuse counseling
CPT/HCPCS: 36415; 76700; 80053; 81001; 81025; 83690; 85025; 96374; 96375; 99284; J1885; J2405; J7030; Q0092

== ENCOUNTER 2019-09-21 17:30 | Emergency (ER) | payer OTHER ==
[~2019-09-21] VITALS: Ht 162.6 cm; Wt 117.9 kg
[2019-09-21 17:45] VITALS: BP 118/8
--- NOTE | 2019-09-21 17:50 | NUR ---
pt ambulated to bed 04.
[2019-09-21 17:57] VITALS: BP 118/78
--- NOTE | 2019-09-21 18:00 | NUR ---
dr chandler at bedside evaluatinbg pt.
--- NOTE | 2019-09-21 18:03 | NUR ---
c/o lower pelvic pain x 6-7 days with painful urination, denies vaginal bleeding; placed on levaquin last week with no improvement, PCP started patient on Bactrim 1 day ago . Pt aox4 , afibrile , ambulatory with steady gait , pink palpebral conjunctiva , anicteric sclera , flat soft abdomen. hx fibroids, diverticulosis, IBS
[2019-09-21 18:23] LABS: BASOPHILS % (AUTO) 0.3 % (0.0-2.0); EOSINOPHILS % (AUTO) 0.3 % (0.0-4.0); HEMATOCRIT 40.8 % (36-48); HEMOGLOBIN 12.9 g/dL (12.0-16.0); LYMPHOCYTES # (AUTO) 1.7 K/uL (2.5-16.5); LYMPHOCYTES % (AUTO) 11.8 % (20.5-51.1); MEAN CORPUSCULAR HEMOGLOBIN 26 pg (27-31); MEAN CORPUSCULAR HGB CONC 32 g/dL (33-37); MEAN CORPUSCULAR VOLUME 81.9 fL (80-94); MONOCYTES # (AUTO) 0.6 K/uL (0.8-1.0); MONOCYTES % (AUTO) 4.2 % (1.7-9.3); NEUTROPHILS # (AUTO) 12.2 K/uL (1.8-7.7); NEUTROPHILS % (AUTO) 83.4 % (42.2-75.2); PLATELET COUNT (AUTO) 330 K/uL (140-450); RED BLOOD CELL COUNT(AUTO) 4.99 MIL/uL (4.20-5.40); WHITE BLOOD COUNT (AUTO) 14.6 K/uL (4.8-10.8)
[2019-09-21 18:36] LABS: APPEARANCE,URINE CLEAR (CLEAR); BILIRUBIN,URINE NEGATIVE (NEGATIVE); BLOOD, URINE 2+ (NEGATIVE); COLOR,URINE YELLOW (YELLOW); LEUKOCYTE ESTERASE ,URINE NEGATIVE (NEGATIVE); NITRITE, URINE NEGATIVE (NEGATIVE); UGLUCOSE NEGATIVE (NEGATIVE)
[2019-09-21 18:50] LABS: ALBUMIN 3.5 g/dL (3.4-5.0); ANION GAP 18.2 (8-16); CARBON DIOXIDE 19.5 mmol/L (21-32); CREATININE 0.6 mg/dL (0.6-1.3); POTASSIUM 3.7 mmol/L (3.5-5.1); TOTAL BILIRUBIN 0.7 mg/dL (0.0-1.0)
--- NOTE | 2019-09-21 19:08 | NUR ---
transfer care to luca avila
[2019-09-21 19:09] LABS: WBC,URINE 0-5 /HPF (0-5)
--- NOTE | 2019-09-21 19:09 | NUR ---
RECIVED REPORT FROM SHANNON HILLS. CONTINUATION OF CARE.
[2019-09-21 19:10] LABS: RBC,URINE 11-20 (MOD) /HPF (0-5)
== END 2019-09-21 19:43 | disposition home or self-care (01) ==
LOC: MED 17:30
DX: N83.209 Unspecified ovarian cyst, unspecified side (principal); R31.9 Hematuria, unspecified
CPT/HCPCS: 36415; 80053; 81001; 81025; 85025; 99284

== ENCOUNTER 2019-12-21 22:30 | Emergency (ER) | payer OTHER ==
[~2019-12-21] VITALS: Ht 160 cm; Wt 121.6 kg
[2019-12-21 22:33] VITALS: BP 150/101
--- NOTE | 2019-12-21 22:38 | NUR ---
PT AMBULATED TO BED 11 WITH STEADY GAIT.
--- NOTE | 2019-12-21 22:50 | NUR ---
MD HAYNES AT BEDSIDE
--- NOTE | 2019-12-21 22:59 | NUR ---
PT COMING IN WITH C/O DIFFUSE ABD PAINBWITH BLOATING X 8 DAYS. PT HAS HAD BOUTS OF DIARRHEA AND CONSTIPATION OVER THE LAST WEEK. SHE HAS BEEN HAVING NAUSEA BUT NO VOMITING, HAS DECREASED APPETITE DUE TO NOT BEING ABLE TO EAT CERTIAN THINGS THAT CAUSE SYMPTOMS TO BE WORSE. PT AFEBRILE. PT IS BEING SEEN BY MD FOR POSSIBLE DX OF IBS, NOT CURRENTLY TAKING ANY MEDS FOR THESE SYMPTOMS. MD OS RULING OUT OTHER OPTIONS WELL. ABD TENDER UPON PALPATION. BED IN LOWEST POSITION AND SIDE RAIL UP X 1. PT PLACED IN GOWN. HX - FATTY LIVER, HTN ALLERGIES - PCN, CODEINE
[2019-12-21] MEDS ORDERED: ONDANSETRON 4 MG/2 ML VIAL IVP ONE (23:00)
[2019-12-21] MEDS ORDERED: NACL 0.9% 1,000 ML IV ONE (23:00)
[2019-12-21] MEDS ORDERED: KETOROLAC 30 MG/ML VIAL IVP ONE ×2 (23:00→23:55)
[2019-12-21] MEDS ORDERED: MORPHINE SULFATE 4 MG/ML SYR IVP ONE (23:00)
--- NOTE | 2019-12-21 23:12 | NUR ---
LABS COLLECTED WHEN STARTING IV AND GIVEN TO LAB TACH
[2019-12-21 23:20] LABS: BASOPHILS # (AUTO) 0.1 K/uL (0.00-0.22); BASOPHILS % (AUTO) 0.7 % (0.0-2.0); EOSINOPHILS # (AUTO) 0.1 K/uL (0-0.4); HEMATOCRIT 38.7 % (36-48); HEMOGLOBIN 12.6 g/dL (12.0-16.0); LYMPHOCYTES # (AUTO) 2.7 K/uL (2.5-16.5); LYMPHOCYTES % (AUTO) 25.3 % (20.5-51.1); MEAN CORPUSCULAR HEMOGLOBIN 27 pg (27-31); MEAN CORPUSCULAR HGB CONC 33 g/dL (33-37); MEAN CORPUSCULAR VOLUME 81.9 fL (80-94); MONOCYTES # (AUTO) 0.6 K/uL (0.8-1.0); MONOCYTES % (AUTO) 5.3 % (1.7-9.3); NEUTROPHILS # (AUTO) 7.1 K/uL (1.8-7.7); NEUTROPHILS % (AUTO) 67.7 % (42.2-75.2); PLATELET COUNT (AUTO) 368 K/uL (140-450); RED BLOOD CELL COUNT(AUTO) 4.73 MIL/uL (4.20-5.40); RED CELL DISTRIBUTION WIDTH 15.4 % (11.6-13.7); WHITE BLOOD COUNT (AUTO) 10.5 K/uL (4.8-10.8)
[2019-12-21 23:21] LABS: APPEARANCE,URINE CLEAR (CLEAR); BILIRUBIN,URINE NEGATIVE (NEGATIVE); BLOOD, URINE 3+ (NEGATIVE); COLOR,URINE YELLOW (YELLOW); LEUKOCYTE ESTERASE ,URINE NEGATIVE (NEGATIVE); NITRITE, URINE NEGATIVE (NEGATIVE); PH,URINE 5.5 (5.0-9.0); UGLUCOSE NEGATIVE (NEGATIVE)
--- NOTE | 2019-12-21 23:34 | NUR ---
PT STATES PAIN IS NOW 3/10, STILL FEELING UNCOMFORTABLE. MD HAYNES AWARE
[2019-12-21 23:36] LABS: ALBUMIN 3.8 g/dL (3.4-5.0); ANION GAP 15.8 (8-16); CARBON DIOXIDE 23.5 mmol/L (21-32); CREATININE 0.7 mg/dL (0.6-1.3); POTASSIUM 3.3 mmol/L (3.5-5.1); TOTAL BILIRUBIN 0.8 mg/dL (0.0-1.0)
[2019-12-21 23:48] LABS: WBC,URINE 0-5 /HPF (0-5)
[2019-12-21] MEDS ORDERED: POTASSIUM CHLORIDE 10 MEQ TABER PO ONE (23:55)
[2019-12-21] MEDS ORDERED: LORazepam 1 MG TAB PO ONE (23:55)
[2019-12-22 00:42] VITALS: BP 147/89
--- NOTE | 2019-12-22 00:43 | NUR ---
Patient discharged with v/s stable. Written and verbal after care instructions given and explained. Patient alert, oriented and verbalized understanding of instructions. Ambulatory with steady gait. All questions addressed prior to discharge. ID band removed. Patient advised to follow up with PMD. Rx of BENTYL AND NORCO given. Patient educated on indication of medication including possible reaction and side effects. Opportunity to ask questions provided and answered.
== END 2019-12-22 00:43 | disposition home or self-care (01) ==
LOC: MED 22:30
DX: R10.11 Right upper quadrant pain (principal); F17.210 Nicotine dependence, cigarettes, uncomplicated; I10 Essential (primary) hypertension; K21.9 Gastro-esophageal reflux disease without esophagitis; Z71.6 Tobacco abuse counseling; Z88.0 Allergy status to penicillin; Z88.5 Allergy status to narcotic agent; Z79.899 Other long term (current) drug therapy
CPT/HCPCS: 36415; 80053; 81001; 81025; 83690; 85025; 96361; 96374; 96375; 96376; 99284; J1885; J2270; J2405

== ENCOUNTER 2020-02-22 17:30 | Emergency (ER) | payer OTHER ==
[~2020-02-22] VITALS: Ht 162.6 cm; Wt 121.6 kg
[2020-02-22 17:38] VITALS: BP 140/80
--- NOTE | 2020-02-22 17:50 | NUR ---
40/F BIB SELF C/O CHEST PAIN RADIATING TO NECK LEFT ARM X 4 DAYS. PMH:HTN, IBS, GERD
[2020-02-22 19:58] LABS: BASOPHILS # (AUTO) 0.1 K/uL (0.00-0.22); BASOPHILS % (AUTO) 0.7 % (0.0-2.0); EOSINOPHILS % (AUTO) 0.4 % (0.0-4.0); HEMATOCRIT 40.2 % (36-48); HEMOGLOBIN 13.2 g/dL (12.0-16.0); LYMPHOCYTES # (AUTO) 1.8 K/uL (2.5-16.5); LYMPHOCYTES % (AUTO) 16.8 % (20.5-51.1); MEAN CORPUSCULAR HEMOGLOBIN 27 pg (27-31); MEAN CORPUSCULAR HGB CONC 33 g/dL (33-37); MEAN CORPUSCULAR VOLUME 81.3 fL (80-94); MONOCYTES # (AUTO) 0.5 K/uL (0.8-1.0); MONOCYTES % (AUTO) 4.4 % (1.7-9.3); NEUTROPHILS # (AUTO) 8.3 K/uL (1.8-7.7); NEUTROPHILS % (AUTO) 77.7 % (42.2-75.2); PLATELET COUNT (AUTO) 361 K/uL (140-450); RED BLOOD CELL COUNT(AUTO) 4.95 MIL/uL (4.20-5.40); RED CELL DISTRIBUTION WIDTH 15.1 % (11.6-13.7); WHITE BLOOD COUNT (AUTO) 10.7 K/uL (4.8-10.8)
[2020-02-22 20:11] LABS: ALBUMIN 3.7 g/dL (3.4-5.0); ANION GAP 14.7 (8-16); CARBON DIOXIDE 24.3 mmol/L (21-32); CREATININE 0.6 mg/dL (0.6-1.3); TOTAL BILIRUBIN 0.4 mg/dL (0.0-1.0)
--- NOTE | 2020-02-22 20:25 | NUR ---
RESULTS BACK AND NOTED BY ERMD AND FOR D/C
--- NOTE | 2020-02-22 21:05 | NUR ---
Patient discharged with v/s stable. Written and verbal after care instructions given and explained. Patient alert, oriented and verbalized understanding of instructions. Ambulatory with steady gait. All questions addressed prior to discharge. ID band removed. Patient advised to follow up with PMD. Rx of NAPROSYN, CLINDAMYCIN given. Patient educated on indication of medication including possible reaction and side effects. Opportunity to ask questions provided and answered.
[2020-02-22 21:10] VITALS: BP 140/80
== END 2020-02-22 21:05 | disposition home or self-care (01) ==
LOC: MED 17:30
DX: R07.89 Other chest pain (principal); K08.89 Other specified disorders of teeth and supporting structures; K21.9 Gastro-esophageal reflux disease without esophagitis; I10 Essential (primary) hypertension; Z88.0 Allergy status to penicillin; Z88.5 Allergy status to narcotic agent
CPT/HCPCS: 36415; 71045; 80053; 83690; 83880; 84484; 85025; 93005; 99285

== ENCOUNTER 2020-05-04 15:10 | Emergency (ER) | payer OTHER ==
[~2020-05-04] VITALS: Ht 167.6 cm; Wt 97.5 kg
[2020-05-04 15:20] VITALS: BP 142/78
--- NOTE | 2020-05-04 15:37 | NUR ---
40 Y/O PRESENTS WITH DYSURIA AND FREQUENCY X3 DAYS, STATES SHE FREQUENTLY GETS UTI'S. DENIES ANY BACK PAIN, VAGINAL DISCHARGE OR FOUL SMELLING ODOR. DENIES N/V/D, SOB, COUGH, FEVER.
[2020-05-04] MEDS ORDERED: CIPR500T4 PO (17:07)
[2020-05-04] MEDS ORDERED: CIPROFLOXACIN 250 MG TAB PO ONE (17:15)
[2020-05-04 17:23] VITALS: BP 142/78
--- NOTE | 2020-05-04 17:23 | NUR ---
Patient discharged with v/s stable. Written and verbal after care instructions given and explained. Patient alert, oriented and verbalized understanding of instructions. Ambulatory with steady gait. All questions addressed prior to discharge. ID band removed. Patient advised to follow up with PMD. Rx of CIPROFLOXACIN given. Patient educated on indication of medication including possible reaction and side effects. Opportunity to ask questions provided and answered.
== END 2020-05-04 17:23 | disposition home or self-care (01) ==
LOC: MED 15:10
DX: N39.0 Urinary tract infection, site not specified (principal); K21.9 Gastro-esophageal reflux disease without esophagitis; I10 Essential (primary) hypertension; Z88.0 Allergy status to penicillin; Z88.5 Allergy status to narcotic agent; Z79.899 Other long term (current) drug therapy
CPT/HCPCS: 81002; 81025; 87086; 99283

== ENCOUNTER 2020-06-16 19:23 | Emergency (ER) | payer OTHER ==
[~2020-06-16] VITALS: Ht 162.6 cm; Wt 122.5 kg
[~2020-06-16 19:23] MED LIST changes: +CIPR500T4 PO
[2020-06-16 19:45] VITALS: BP 127/66
--- NOTE | 2020-06-16 19:45 | NUR ---
TO BED AMBULATORY
--- NOTE | 2020-06-16 20:00 | NUR ---
40/F BIB SELF COMPLAINING OF PAINFUL BURNING URINATION 09/30 FOR 2-3 DAYS. PT DENIES ANY FEVER, CHILLS. PMH; HTN, GERD, IBS, DIVERTICULITIS ALLERGY: PCN, CODEINE
[2020-06-16] MEDS ORDERED: NITR100C7 PO (20:21)
[2020-06-16] MEDS ORDERED: PYR100 PO (20:21)
[2020-06-16 20:30] VITALS: BP 127/66
--- NOTE | 2020-06-16 20:30 | NUR ---
Patient discharged with v/s stable. Written and verbal after care instructions given and explained. Patient alert, oriented and verbalized understanding of instructions. Ambulatory with steady gait. All questions addressed prior to discharge. ID band removed. Patient advised to follow up with PMD. Rx of PYRIDIUM, MACROBID given. Patient educated on indication of medication including possible reaction and side effects. Opportunity to ask questions provided and answered.
== END 2020-06-16 20:30 | disposition home or self-care (01) ==
LOC: MED 19:23
DX: N39.0 Urinary tract infection, site not specified (principal); K21.9 Gastro-esophageal reflux disease without esophagitis; I10 Essential (primary) hypertension; F17.210 Nicotine dependence, cigarettes, uncomplicated; Z88.0 Allergy status to penicillin; Z88.5 Allergy status to narcotic agent
CPT/HCPCS: 81002; 81025; 99282

== ENCOUNTER 2020-08-28 16:48 | Emergency (ER) | payer OTHER ==
[~2020-08-28] VITALS: Ht 162.6 cm; Wt 117.9 kg
[~2020-08-28 16:48] MED LIST changes: +NITR100C7 PO; +PYR100 PO
[2020-08-28 17:04] VITALS: BP 133/86
[2020-08-28] MEDS ORDERED: DICYCLOMINE 10 MG CAP PO ONE (18:05)
[2020-08-28] MEDS ORDERED: HYDROcodone/APAP 5/325 MG 1 TAB TAB PO ONE (18:05)
[2020-08-28 18:22] LABS: BASOPHILS # (AUTO) 0.1 K/uL (0.00-0.22); BASOPHILS % (AUTO) 0.6 % (0.0-2.0); EOSINOPHILS # (AUTO) 0.1 K/uL (0-0.4); EOSINOPHILS % (AUTO) 0.6 % (0.0-4.0); HEMATOCRIT 41.8 % (36-48); HEMOGLOBIN 13.7 g/dL (12.0-16.0); LYMPHOCYTES # (AUTO) 1.8 K/uL (2.5-16.5); LYMPHOCYTES % (AUTO) 14.8 % (20.5-51.1); MEAN CORPUSCULAR HEMOGLOBIN 27 pg (27-31); MEAN CORPUSCULAR HGB CONC 33 g/dL (33-37); MEAN CORPUSCULAR VOLUME 82.3 fL (80-94); MONOCYTES # (AUTO) 0.5 K/uL (0.8-1.0); MONOCYTES % (AUTO) 4.1 % (1.7-9.3); NEUTROPHILS # (AUTO) 9.9 K/uL (1.8-7.7); NEUTROPHILS % (AUTO) 79.9 % (42.2-75.2); PLATELET COUNT (AUTO) 384 K/uL (140-450); RED BLOOD CELL COUNT(AUTO) 5.08 MIL/uL (4.20-5.40); WHITE BLOOD COUNT (AUTO) 12.4 K/uL (4.8-10.8)
[2020-08-28 18:35] LABS: ALBUMIN 3.9 g/dL (3.4-5.0); ANION GAP 13.3 (8-16); CARBON DIOXIDE 24.4 mmol/L (21-32); CREATININE 0.7 mg/dL (0.6-1.3); POTASSIUM 3.7 mmol/L (3.5-5.1); TOTAL BILIRUBIN 0.8 mg/dL (0.0-1.0)
[2020-08-28 18:44] LABS: APPEARANCE,URINE CLEAR (CLEAR); BILIRUBIN,URINE 1+ (NEGATIVE); BLOOD, URINE 3+ (NEGATIVE); COLOR,URINE YELLOW (YELLOW); LEUKOCYTE ESTERASE ,URINE 1+ (NEGATIVE); NITRITE, URINE NEGATIVE (NEGATIVE); UGLUCOSE NEGATIVE (NEGATIVE)
[2020-08-28 18:57] LABS: RBC,URINE 20-50 /HPF (0-5)
[2020-08-28] MEDS ORDERED: SULF-58 PO (20:46)
[2020-08-28 20:54] VITALS: BP 124/68
== END 2020-08-28 20:53 | disposition home or self-care (01) ==
LOC: MED 16:48
DX: N39.0 Urinary tract infection, site not specified (principal); R19.7 Diarrhea, unspecified; K59.00 Constipation, unspecified
CPT/HCPCS: 36415; 80053; 81001; 81025; 83690; 85025; 87086; 99283

== ENCOUNTER 2020-11-07 16:41 | Emergency (ER) | payer OTHER ==
[~2020-11-07] VITALS: Ht 162.6 cm; Wt 117.9 kg
[~2020-11-07 16:41] MED LIST changes: +SULF-58 PO
[2020-11-07 17:00] VITALS: BP 155/88
--- NOTE | 2020-11-07 17:07 | NUR ---
PT SENT TO LOBBY
[2020-11-07 19:02] LABS: APPEARANCE,URINE CLEAR (CLEAR); BILIRUBIN,URINE NEGATIVE (NEGATIVE); BLOOD, URINE 2+ (NEGATIVE); COLOR,URINE YELLOW (YELLOW); LEUKOCYTE ESTERASE ,URINE 1+ (NEGATIVE); NITRITE, URINE NEGATIVE (NEGATIVE); UGLUCOSE NEGATIVE (NEGATIVE)
[2020-11-07 19:07] LABS: BASOPHILS # (AUTO) 0.1 K/uL (0.00-0.22); BASOPHILS % (AUTO) 0.8 % (0.0-2.0); EOSINOPHILS % (AUTO) 0.4 % (0.0-4.0); HEMATOCRIT 42.3 % (36-48); HEMOGLOBIN 13.6 g/dL (12.0-16.0); LYMPHOCYTES # (AUTO) 1.8 K/uL (2.5-16.5); LYMPHOCYTES % (AUTO) 13.6 % (20.5-51.1); MEAN CORPUSCULAR HEMOGLOBIN 27 pg (27-31); MEAN CORPUSCULAR HGB CONC 32 g/dL (33-37); MEAN CORPUSCULAR VOLUME 82.9 fL (80-94); MONOCYTES # (AUTO) 0.6 K/uL (0.8-1.0); MONOCYTES % (AUTO) 4.8 % (1.7-9.3); NEUTROPHILS # (AUTO) 10.6 K/uL (1.8-7.7); NEUTROPHILS % (AUTO) 80.4 % (42.2-75.2); PLATELET COUNT (AUTO) 382 K/uL (140-450); RED CELL DISTRIBUTION WIDTH 15.8 % (11.6-13.7); WHITE BLOOD COUNT (AUTO) 13.1 K/uL (4.8-10.8)
[2020-11-07 19:33] LABS: ALBUMIN 3.7 g/dL (3.4-5.0); ANION GAP 14.2 (8-16); CARBON DIOXIDE 21.9 mmol/L (21-32); CREATININE 0.7 mg/dL (0.6-1.3); POTASSIUM 4.1 mmol/L (3.5-5.1); TOTAL BILIRUBIN 0.7 mg/dL (0.0-1.0)
[2020-11-07] MEDS ORDERED: CEPH-588 PO (21:44)
[2020-11-07 21:59] VITALS: BP 148/79
== END 2020-11-07 21:59 | disposition home or self-care (01) ==
LOC: MED 16:41
DX: R10.12 Left upper quadrant pain (principal); R63.0 Anorexia; K21.9 Gastro-esophageal reflux disease without esophagitis; I10 Essential (primary) hypertension; Z88.0 Allergy status to penicillin; Z88.5 Allergy status to narcotic agent; Z79.899 Other long term (current) drug therapy
CPT/HCPCS: 36415; 80053; 81001; 81025; 83690; 84702; 85025; 87086; 99284

== ENCOUNTER 2021-02-17 12:27 | Emergency (ER) | payer OTHER ==
[~2021-02-17] VITALS: Ht 162.6 cm; Wt 92.1 kg
[~2021-02-17 12:27] MED LIST changes: +CEPH-588 PO
[2021-02-17 13:02] VITALS: BP 157/82
[2021-02-17] MEDS ORDERED: IBUPROFEN 600 MG TAB PO ONE (13:30)
[2021-02-17 14:00] LABS: BASOPHILS # (AUTO) 0.1 K/uL (0.00-0.22); BASOPHILS % (AUTO) 0.5 % (0.0-2.0); EOSINOPHILS # (AUTO) 0.1 K/uL (0-0.4); EOSINOPHILS % (AUTO) 0.6 % (0.0-4.0); HEMATOCRIT 37.7 % (36-48); HEMOGLOBIN 12.1 g/dL (12.0-16.0); LYMPHOCYTES # (AUTO) 2.8 K/uL (2.5-16.5); LYMPHOCYTES % (AUTO) 23.6 % (20.5-51.1); MEAN CORPUSCULAR HEMOGLOBIN 26 pg (27-31); MEAN CORPUSCULAR HGB CONC 32 g/dL (33-37); MEAN CORPUSCULAR VOLUME 80.7 fL (80-94); MONOCYTES # (AUTO) 0.6 K/uL (0.8-1.0); MONOCYTES % (AUTO) 5.4 % (1.7-9.3); NEUTROPHILS # (AUTO) 8.3 K/uL (1.8-7.7); NEUTROPHILS % (AUTO) 69.9 % (42.2-75.2); PLATELET COUNT (AUTO) 396 K/uL (140-450); RED BLOOD CELL COUNT(AUTO) 4.67 MIL/uL (4.20-5.40); RED CELL DISTRIBUTION WIDTH 15.1 % (11.6-13.7); WHITE BLOOD COUNT (AUTO) 11.9 K/uL (4.8-10.8)
[2021-02-17 14:25] LABS: ALBUMIN 3.5 g/dL (3.4-5.0); ANION GAP 12.9 (8-16); CARBON DIOXIDE 24.7 mmol/L (21-32); CREATININE 0.7 mg/dL (0.6-1.3); POTASSIUM 3.6 mmol/L (3.5-5.1); TOTAL BILIRUBIN 0.5 mg/dL (0.0-1.0)
[2021-02-17] MEDS ORDERED: NAPR-1704 PO (14:37)
[2021-02-17] MEDS ORDERED: IBUPROFEN 600 MG TAB ONE (14:50)
--- NOTE | 2021-02-17 15:00 | NUR ---
41/F BIB SELF WITH C/O CP X1 WEEK. SANDRINETENT DENIES INJURY OR TRAUMA, STATES PAIN IS INTERMITTENT AND HAS BEEN RADIATING TO HER LEFT ARM, REPORTS PAIN WORSENS WITH INSPIRATION. PATIENT ALSO C/O NAUSEA AND CHILLS. DENIES FEVER, COUGH, N/V/D.
[2021-02-17 15:26] VITALS: BP 157/82
--- NOTE | 2021-02-17 15:27 | NUR ---
Patient discharged with v/s stable. Written and verbal after care instructions ABOUT CHEST WALL PAIN given and explained. Patient alert, oriented and verbalized understanding of instructions. Ambulatory with steady gait. All questions addressed prior to discharge. ID band removed. Patient advised to follow up with PMD. Rx of NAPROSYN given. Patient educated on indication of medication including possible reaction and side effects. Opportunity to ask questions provided and answered.
== END 2021-02-17 15:27 | disposition home or self-care (01) ==
LOC: MED 12:27
DX: R07.89 Other chest pain (principal); I10 Essential (primary) hypertension
CPT/HCPCS: 36415; 71045; 80053; 84484; 85025; 93005; 99285

== ENCOUNTER 2021-04-09 18:43 | Emergency (ER) | payer OTHER ==
[~2021-04-09] VITALS: Ht 160 cm; Wt 127.9 kg
[~2021-04-09 18:43] MED LIST changes: +NAPR-1704 PO
[2021-04-09 18:49] VITALS: BP 127/91
--- NOTE | 2021-04-09 18:56 | NUR ---
41/F AMBULATED TO BE 4, C/O NECK PAIN X4 DAYS. DENIES RECENT INJURY OR TRAUMA, STATES PAIN RADIATES TO HEAD AND JAW. REPORTS TAKING NAPROSYN FOR PAIN WITH MILD RELIEF. MEDHX: PREDIABETIC, HTN, FATTY LIVER ALLERGIES: NKA
[2021-04-09] MEDS ORDERED: KETOROLAC 30 MG/ML VIAL IM ONE (19:10)
[2021-04-09] MEDS ORDERED: ACETAMINOPHEN EXTRA STRENGTH 500 MG TAB PO ONE (19:10)
--- NOTE | 2021-04-09 19:11 | NUR ---
Pt report given to SESAR MAYO. Transfer of care at this time.
[2021-04-09] MEDS ORDERED: ACET-8386 PO (19:48)
[2021-04-09] MEDS ORDERED: AMOX-1000 PO (19:48)
[2021-04-09] MEDS ORDERED: HYDROcodone/APAP 5/325 MG 1 TAB TAB PO ONE (19:50)
[2021-04-09 20:07] VITALS: BP 135/77
--- NOTE | 2021-04-09 20:07 | NUR ---
Patient discharged with v/s stable. Written and verbal after care instructions given and explained. Patient alert, oriented and verbalized understanding of instructions. Ambulatory with steady gait. All questions addressed prior to discharge. ID band removed. Patient advised to follow up with PMD. Rx of [id number] & HYDROCODON 5 -325 given. Opportunity to ask questions provided and answered.
--- NOTE | 2021-04-09 20:12 | NUR ---
The patient's care was reviewed and supervised by Annabella Garza RN.
== END 2021-04-09 20:07 | disposition home or self-care (01) ==
LOC: MED 18:43
DX: I88.9 Nonspecific lymphadenitis, unspecified (principal); J02.9 Acute pharyngitis, unspecified; M54.2 Cervicalgia; K21.9 Gastro-esophageal reflux disease without esophagitis; I10 Essential (primary) hypertension; Z79.899 Other long term (current) drug therapy
CPT/HCPCS: 96372; 99283; J1885

== ENCOUNTER 2021-04-25 18:49 | Emergency (ER) | payer OTHER ==
[~2021-04-25] VITALS: Ht 170.2 cm; Wt 98.4 kg
[~2021-04-25 18:49] MED LIST changes: +ACET-8386 PO; +AMOX-1000 PO
[2021-04-25 18:54] VITALS: BP 142/79
--- NOTE | 2021-04-25 19:54 | NUR ---
examined by PA
--- NOTE | 2021-04-25 22:15 | NUR ---
examined by patricia
[2021-04-25] MEDS ORDERED: ACET-10509 PO (22:28)
[2021-04-25] MEDS ORDERED: IBUP-2213 PO (22:28)
[2021-04-25] MEDS ORDERED: CLIN300C2 PO (22:30)
[2021-04-25 22:38] VITALS: BP 142/91
--- NOTE | 2021-04-25 22:38 | NUR ---
seen by patricia no nursing intervx needed for pt
--- NOTE | 2021-04-25 22:38 | NUR ---
Patient discharged with v/s stable. Written and verbal after care instructions given and explained. Patient alert, oriented and verbalized understanding of instructions. Ambulatory with steady gait. All questions addressed prior to discharge. ID band removed. Patient advised to follow up with PMD. Rx of tylenol extra strength tab, clindamycin hcl, and ibuprofen given. Patient educated on indication of medication including possible reaction and side effects. Opportunity to ask questions provided and answered.
== END 2021-04-25 22:38 | disposition home or self-care (01) ==
LOC: MED 18:49
DX: K04.7 Periapical abscess without sinus (principal)
CPT/HCPCS: 99283

== ENCOUNTER 2021-09-01 19:24 | Emergency (ER) | payer OTHER ==
[~2021-09-01] VITALS: Ht 162.6 cm; Wt 127.0 kg
[~2021-09-01 19:24] MED LIST changes: +ACET-10509 PO; +CLIN300C2 PO; +IBUP-2213 PO
[2021-09-01 19:44] VITALS: BP 148/82
--- NOTE | 2021-09-01 20:00 | NUR ---
EKG DONE IN TRIAGE = NSR
--- NOTE | 2021-09-01 20:00 | NUR ---
TO LOBBY FOLLOWING TRIAGE
[2021-09-01 22:04] LABS: BASOPHILS # (AUTO) 0.1 K/uL (0.00-0.22); BASOPHILS % (AUTO) 0.4 % (0.0-2.0); EOSINOPHILS # (AUTO) 0.1 K/uL (0-0.4); EOSINOPHILS % (AUTO) 0.6 % (0.0-4.0); HEMATOCRIT 36.2 % (36-48); HEMOGLOBIN 11.4 g/dL (12.0-16.0); LYMPHOCYTES # (AUTO) 1.9 K/uL (2.5-16.5); LYMPHOCYTES % (AUTO) 14.9 % (20.5-51.1); MEAN CORPUSCULAR HEMOGLOBIN 23 pg (27-31); MEAN CORPUSCULAR HGB CONC 32 g/dL (33-37); MEAN CORPUSCULAR VOLUME 73.4 fL (80-94); MONOCYTES # (AUTO) 0.5 K/uL (0.8-1.0); MONOCYTES % (AUTO) 3.7 % (1.7-9.3); NEUTROPHILS # (AUTO) 10.5 K/uL (1.8-7.7); NEUTROPHILS % (AUTO) 80.4 % (42.2-75.2); PLATELET COUNT (AUTO) 367 K/uL (140-450); RED BLOOD CELL COUNT(AUTO) 4.93 MIL/uL (4.20-5.40); RED CELL DISTRIBUTION WIDTH 17.2 % (11.6-13.7); WHITE BLOOD COUNT (AUTO) 13.1 K/uL (4.8-10.8)
[2021-09-01 23:05] LABS: ALBUMIN 3.5 g/dL (3.4-5.0); ANION GAP 18.6 (8-16); ASPARTATE AMINOTRANSFERASE 12 U/L (15-37); CARBON DIOXIDE 22.4 mmol/L (21-32); CHLORIDE 106 mmol/L (98-107); CREATININE 0.6 mg/dL (0.6-1.3); GFR ARICAN-AMERICAN 141 mL/min (>90); GLUCOSE 112 mg/dL (74-106); SODIUM SERUM 143 mmol/L (136-145); TOTAL BILIRUBIN 0.7 mg/dL (0.0-1.0); UREA NITROGEN, BLOOD 14 mg/dL (7-18)
[2021-09-01] MEDS ORDERED: ASPIRIN 325 MG TAB PO ONE (23:30)
[2021-09-01] MEDS ORDERED: ASPIRIN 81 MG TAB.CHEW PO ONE (23:30)
[2021-09-01] MEDS ORDERED: ALUMINUM HYD/MAG/SIMETHICONE 30 ML, DICYCLOMINE HCL LIQUID 20 MG, LIDOCAINE VISCOUS 2% ... PO ONE ×3 (23:30)
[2021-09-01] MEDS ORDERED: DICYCLOMINE HCL LIQUID 10 MG/5 ML UDC ONE (23:43)
[2021-09-01] MEDS ORDERED: ALUMINUM HYD/MAG/SIMETHICONE 30 ML UDC ONE (23:43)
[2021-09-02 01:15] VITALS: BP 148/82
== END 2021-09-02 01:15 | disposition home or self-care (01) ==
LOC: MED 19:24
DX: R07.9 Chest pain, unspecified (principal); M25.512 Pain in left shoulder; M79.602 Pain in left arm; K21.9 Gastro-esophageal reflux disease without esophagitis; I10 Essential (primary) hypertension; Z79.899 Other long term (current) drug therapy
CPT/HCPCS: 36415; 71045; 80053; 84484; 85025; 93005; 99285

== ENCOUNTER 2022-10-27 09:07 | Emergency (ER) | payer OTHER ==
[~2022-10-27] VITALS: Ht 160 cm; Wt 124.7 kg
[~2022-10-27 09:07] MED LIST changes: -ACET-8386 PO; +ACET-8905 PO
[2022-10-27 09:22] VITALS: BP 137/81; PULSE 92; RESP 20; TEMP 98; O2SAT 100
[2022-10-27] MEDS ORDERED: TRAM-748 PO (09:54)
[2022-10-27] MEDS ORDERED: NAPR-1704 PO (09:54)
[2022-10-27 10:00] VITALS: BP 137/81; PULSE 92; RESP 20; TEMP 98; O2SAT 100
== END 2022-10-27 10:00 | disposition home or self-care (01) ==
LOC: MED 09:07
DX: S16.1XXA Strain of muscle, fascia and tendon at neck level, initial encounter (principal); K21.9 Gastro-esophageal reflux disease without esophagitis; I10 Essential (primary) hypertension; Z79.899 Other long term (current) drug therapy; X58.XXXA Exposure to other specified factors, initial encounter; Y93.89 Activity, other specified; Y92.89 Other specified places as the place of occurrence of the external cause; Y99.8 Other external cause status
CPT/HCPCS: 99283

== ENCOUNTER 2023-12-01 11:49 | Emergency (ER) | payer OTHER ==
[~2023-12-01] VITALS: Ht 162.6 cm; Wt 121.6 kg
[~2023-12-01 11:49] MED LIST changes: -ACET-10509 PO; +ACET500T99 PO; +TRAM-748 PO
[2023-12-01 11:53] VITALS: BP 149/101; PULSE 82; RESP 16; TEMP 97.2; O2SAT 96
[2023-12-01] MEDS ORDERED: FAMO-92 PO (12:27)
[2023-12-01 12:30] VITALS: BP 156/89; PULSE 76; RESP 16; O2SAT 98
== END 2023-12-01 12:30 | disposition home or self-care (01) ==
LOC: MED 11:49
DX: K29.70 Gastritis, unspecified, without bleeding (principal); K21.9 Gastro-esophageal reflux disease without esophagitis; I10 Essential (primary) hypertension; E11.9 Type 2 diabetes mellitus without complications; Z98.890 Other specified postprocedural states; Z79.899 Other long term (current) drug therapy
CPT/HCPCS: 99284